=== PATIENT | male | born 1985 | race Caucasian/White ===

== ENCOUNTER 2016-09-15 15:38 | Outpatient (CLI) | payer MEDICAID | END 2016-09-15 15:39 | disposition home or self-care (01) | DX: M51.36 Other intervertebral disc degeneration, lumbar region (principal); M51.46 Schmorl's nodes, lumbar region ==

== ENCOUNTER 2019-04-05 08:31 | Outpatient (CLI) | payer MEDICAID | END 2019-04-05 08:32 | disposition EMS.NT | LOC: EMS 08:31 | PROVIDERS: ATTEND Surgery | DX: M54.5 Low back pain (principal); M25.561 Pain in right knee; V53.5XXA Driver of pick-up truck or van injured in collision with car, pick-up truck or van in traffic accident, initial encounter; Y92.413 State road as the place of occurrence of the external cause ==